=== PATIENT | male | born 1965 | race Caucasian/White ===

== ENCOUNTER 2022-04-06 13:47 | Inpatient (IN) | payer MEDICAID, OTHER ==
[~2022-04-06] VITALS: Ht 170.2 cm; Wt 88.5 kg
[~2022-04-06 13:47] MED LIST: AMLO5TAB PO; LISI-487 PO; UNKNOWN BP MEDS
[2022-04-06 13:57] VITALS: BP 125/65
[2022-04-06 14:44] LABS: BASOPHILS # (AUTO) 0.1 K/uL (0.00-0.22); BASOPHILS % (AUTO) 0.7 % (0.0-2.0); EOSINOPHILS # (AUTO) 0.3 K/uL (0-0.4); EOSINOPHILS % (AUTO) 3.5 % (0.0-4.0); HEMATOCRIT 42.6 % (36-52); HEMOGLOBIN 14.6 g/dL (12.0-18.0); LYMPHOCYTES # (AUTO) 1.9 K/uL (2.0-11.5); LYMPHOCYTES % (AUTO) 22.2 % (20.5-51.1); MEAN CORPUSCULAR HEMOGLOBIN 32 pg (27-31); MEAN CORPUSCULAR HGB CONC 34 g/dL (33-37); MEAN CORPUSCULAR VOLUME 92.6 fL (80-94); MONOCYTES # (AUTO) 0.9 K/uL (0.8-1.0); NEUTROPHILS # (AUTO) 5.5 K/uL (1.8-7.7); NEUTROPHILS % (AUTO) 63.6 % (42.2-75.2); PLATELET COUNT (AUTO) 188 K/uL (140-450); RED BLOOD CELL COUNT(AUTO) 4.59 MIL/uL (4.20-6.10); RED CELL DISTRIBUTION WIDTH 13.2 % (11.6-13.7); WHITE BLOOD COUNT (AUTO) 8.6 K/uL (4.8-10.8)
[2022-04-06 15:08] LABS: PROTHROMBIN TIME 10.2 secs (10.8-13.4)
[2022-04-06 15:13] LABS: ALBUMIN 3.8 g/dL (3.4-5.0); ANION GAP 11.7 (8-16); ASPARTATE AMINOTRANSFERASE 18 U/L (15-37); CHLORIDE 105 mmol/L (98-107); CREATININE 1.1 mg/dL (0.6-1.3); GFR ARICAN-AMERICAN 89 mL/min (>90); GLUCOSE 127 mg/dL (74-106); SODIUM SERUM 144 mmol/L (136-145); TOTAL BILIRUBIN 0.6 mg/dL (0.0-1.0); UREA NITROGEN, BLOOD 22 mg/dL (7-18)
[2022-04-06 15:40] LABS: POTASSIUM 2.7 mmol/L (3.5-5.1)
[2022-04-06] MEDS ORDERED: POTASSIUM CHLORIDE 10 MEQ TABER PO ONE ×2 (15:45→16:56)
[2022-04-06] MEDS ORDERED: KCL 20 MEQ/WATER INJ PREMIX 100 ML IV ONE (15:45)
[2022-04-06] MEDS ORDERED: ASPIRIN 325 MG TABEC PO STA (18:42)
[2022-04-06] MEDS ORDERED: HYDROcodone/APAP 5/325 MG 1 TAB TAB PO PRN (19:05)
[2022-04-06] MEDS ORDERED: ACETAMINOPHEN 325 MG TAB PO PRN (19:05)
[2022-04-06] MEDS ORDERED: MORPHINE SULFATE 4 MG/ML SYR IVP PRN (19:05)
[2022-04-06] MEDS ORDERED: ONDANSETRON 4 MG/2 ML VIAL IVP PRN (19:05)
[2022-04-06 19:57] LABS: APPEARANCE,URINE CLEAR (CLEAR); BILIRUBIN,URINE NEGATIVE (NEGATIVE); BLOOD, URINE NEGATIVE (NEGATIVE); COLOR,URINE YELLOW (YELLOW); LEUKOCYTE ESTERASE ,URINE NEGATIVE (NEGATIVE); NITRITE, URINE NEGATIVE (NEGATIVE); PH,URINE 5.5 (5.0-9.0); UGLUCOSE NEGATIVE (NEGATIVE)
[2022-04-06] MEDS ORDERED: CHLO25TA33 PO (20:17)
[2022-04-06 20:47] VITALS: BP 129/69
[2022-04-07] MEDS ORDERED: ATEN25TA2 PO (00:54)
[2022-04-07] MEDS ORDERED: ASPI-1206 PO (00:54)
[2022-04-07] MEDS ORDERED: ATOR10TA51 PO (00:54)
[2022-04-07] MEDS: SIMVASTATIN 40 MG TAB PO SCH ×2 (01:51→20:34)
[2022-04-07] MEDS: NACL 0.9% 1,000 ML IV SCH ×3 (01:54→21:56)
[2022-04-07 02:07] VITALS: BP 115/66
[2022-04-07 06:36] LABS: ANION GAP 11.3 (8-16); CARBON DIOXIDE 30.4 mmol/L (21-32); CREATININE 0.9 mg/dL (0.6-1.3)
[2022-04-07 06:49] LABS: POTASSIUM 2.7 mmol/L (3.5-5.1)
[2022-04-07 07:38] LABS: BASOPHILS # (AUTO) 0.1 K/uL (0.00-0.22); BASOPHILS % (AUTO) 0.6 % (0.0-2.0); EOSINOPHILS # (AUTO) 0.4 K/uL (0-0.4); EOSINOPHILS % (AUTO) 3.8 % (0.0-4.0); HEMATOCRIT 41.4 % (36-52); HEMOGLOBIN 14.5 g/dL (12.0-18.0); LYMPHOCYTES # (AUTO) 2.2 K/uL (2.0-11.5); LYMPHOCYTES % (AUTO) 23.1 % (20.5-51.1); MEAN CORPUSCULAR HEMOGLOBIN 32 pg (27-31); MEAN CORPUSCULAR HGB CONC 35 g/dL (33-37); MONOCYTES # (AUTO) 0.6 K/uL (0.8-1.0); MONOCYTES % (AUTO) 6.7 % (1.7-9.3); NEUTROPHILS # (AUTO) 6.3 K/uL (1.8-7.7); NEUTROPHILS % (AUTO) 65.8 % (42.2-75.2); PLATELET COUNT (AUTO) 269 K/uL (140-450); RED CELL DISTRIBUTION WIDTH 13.2 % (11.6-13.7); WHITE BLOOD COUNT (AUTO) 9.7 K/uL (4.8-10.8)
[2022-04-07 08:00] VITALS: BP 123/71
[2022-04-07 12:00] VITALS: BP 130/76
[2022-04-07 20:00] VITALS: BP 140/80
[2022-04-07] MEDS: KCL 20 MEQ/WATER INJ PREMIX 200 ML IV PRN (21:32)
[2022-04-08] VITALS: BP 124/75
[2022-04-08] MEDS: KCL 20 MEQ/WATER INJ PREMIX 200 ML IV PRN (01:52)
[2022-04-08 05:32] VITALS: BP 119/80
[2022-04-08 06:54] LABS: HEMATOCRIT 40.8 % (36-52); MEAN CORPUSCULAR HEMOGLOBIN 32 pg (27-31); MEAN CORPUSCULAR HGB CONC 34 g/dL (33-37); MEAN CORPUSCULAR VOLUME 92.4 fL (80-94); RED BLOOD CELL COUNT(AUTO) 4.42 MIL/uL (4.20-6.10); RED CELL DISTRIBUTION WIDTH 13.2 % (11.6-13.7); WHITE BLOOD COUNT (AUTO) 10.9 K/uL (4.8-10.8)
[2022-04-08 07:07] LABS: ANION GAP 10.7 (8-16); CARBON DIOXIDE 29.5 mmol/L (21-32); CREATININE 0.9 mg/dL (0.6-1.3); POTASSIUM 3.2 mmol/L (3.5-5.1)
[2022-04-08] MEDS ORDERED: ASPI-1822 PO (07:54)
[2022-04-08] MEDS ORDERED: CLOP75TA26 PO (07:55)
[2022-04-08 08:00] VITALS: BP 132/82
[2022-04-08] MEDS: NACL 0.9% 1,000 ML IV SCH (08:35)
[2022-04-08] MEDS ORDERED: ATOR40TA40 PO (08:51)
[2022-04-08] MEDS ORDERED: POTASSIUM CHLORIDE 10 MEQ TABER PO SCH (09:00)
[2022-04-08 10:06] LABS: LYMPHOCYTES % (MANUAL) 22 % (20-46)
[2022-04-08 10:07] LABS: EOSINOPHILS % (MANUAL) 4 % (0-4); MONOCYTES % (MANUAL) 10 % (5-12)
[2022-04-08 10:08] LABS: PLATELET COUNT (AUTO) 221 K/uL (140-450)
== END 2022-04-08 10:22 | disposition home or self-care (01) | DRG 45 ==
LOC: MED 13:47 → MTU 19:05
PROVIDERS: ADMIT Student in an Organized Health Care Education/Training Program; ATTEND Student in an Organized Health Care Education/Training Program
DX: I63.89 Other cerebral infarction (principal); G81.94 Hemiplegia, unspecified affecting left nondominant side; E66.9 Obesity, unspecified; F17.200 Nicotine dependence, unspecified, uncomplicated; R29.810 Facial weakness; R47.1 Dysarthria and anarthria; R29.702 NIHSS score 2; I10 Essential (primary) hypertension; R47.81 Slurred speech; Z20.822 Contact with and (suspected) exposure to COVID-19; Z68.30 Body mass index [BMI] 30.0-30.9, adult
CPT/HCPCS: 36415; 70450; 71045; 80048; 80053; 81003; 83690; 83735; 84484; 85025; 85610; 85730; 86886; 86900; 86901; 87081; 93005; 96365; 99291; J1644; J3480; Q0092; Q9967

== ENCOUNTER 2023-04-29 14:39 | Inpatient (IN) | payer OTHER ==
[~2023-04-29] VITALS: Ht 170.2 cm; Wt 84.0 kg
[~2023-04-29 14:39] MED LIST changes: +ASPI-1822 PO; +ATEN25TA2 PO; +ATOR40TA40 PO; +CHLO25TA33 PO; +CLOP-68 PO; -UNKNOWN BP MEDS
[2023-04-29 14:51] VITALS: BP 110/60; PULSE 106; RESP 38; TEMP 102.9; O2SAT 93
[2023-04-29] MEDS ORDERED: CEFEPIME 1,000 MG in DEXTROSE 5% 50 ML IV ONE (15:15)
[2023-04-29] MEDS ORDERED: NACL 0.9% 2,000 ML IV ONE (15:15)
[2023-04-29] MEDS ORDERED: CEFEPIME 1,000 MG VIAL ONE (15:28)
[2023-04-29] MEDS ORDERED: ACETAMINOPHEN 325 MG TAB PO ONE (15:35)
[2023-04-29 16:08] LABS: BASOPHILS # (AUTO) 0.1 K/uL (0.00-0.22); BASOPHILS % (AUTO) 0.6 % (0.0-2.0); HEMATOCRIT 40.1 % (36-52); HEMOGLOBIN 14.4 g/dL (12.0-18.0); LYMPHOCYTES # (AUTO) 0.9 K/uL (2.0-11.5); LYMPHOCYTES % (AUTO) 5.3 % (20.5-51.1); MEAN CORPUSCULAR HEMOGLOBIN 31 pg (27-31); MEAN CORPUSCULAR HGB CONC 36 g/dL (33-37); MEAN CORPUSCULAR VOLUME 87.4 fL (80-94); MONOCYTES # (AUTO) 0.7 K/uL (0.8-1.0); MONOCYTES % (AUTO) 4.1 % (1.7-9.3); PLATELET COUNT (AUTO) 40 K/uL (140-450); RED BLOOD CELL COUNT(AUTO) 4.58 MIL/uL (4.20-6.10); RED CELL DISTRIBUTION WIDTH 13.4 % (11.6-13.7); WHITE BLOOD COUNT (AUTO) 16.6 K/uL (4.8-10.8)
[2023-04-29 16:33] LABS: ALANINE AMINOTRANSFERASE 549 U/L (12-78); ALKALINE PHOSPHATASE 157 U/L (50-136); ANION GAP 11.3 (8-16); ASPARTATE AMINOTRANSFERASE 649 U/L (15-37); CALCIUM 8.4 mg/dL (8.5-10.1); CARBON DIOXIDE 26.6 mmol/L (21-32); CHLORIDE 86 mmol/L (98-107); CREATININE 1.9 mg/dL (0.6-1.3); GFR ARICAN-AMERICAN 47 mL/min (>90); GFR NON ARICAN-AMERICAN 39 mL/min (>90); GLUCOSE 144 mg/dL (74-106); LIPASE 488 U/L (73-393); SODIUM SERUM 122 mmol/L (136-145); TOTAL BILIRUBIN 1.5 mg/dL (0.0-1.0); TOTAL PROTEIN, SERUM 7.1 g/dL (6.4-8.2); UREA NITROGEN, BLOOD 25 mg/dL (7-18)
[2023-04-29 16:45] LABS: POTASSIUM 1.9 mmol/L (3.5-5.1)
[2023-04-29 16:49] LABS: LACTIC ACID 2.2 mmol/L (0.4-2.0)
[2023-04-29] MEDS ORDERED: KCL 20 MEQ IN 100 mL PREMIX 200 ML IV ONE (16:50)
[2023-04-29] MEDS ORDERED: NACL 0.9% 1,000 ML IV ONE (16:50)
[2023-04-29] MEDS ORDERED: SODIUM PHOS / POTASSIUM PHOS 1 PKT PDR PO SCH (16:50)
[2023-04-29 19:29] VITALS: O2SAT 98
[2023-04-29 20:27] LABS: ALBUMIN 2.6 g/dL (3.4-5.0); CALCIUM 7.8 mg/dL (8.5-10.1); CARBON DIOXIDE 26.8 mmol/L (21-32); CREATININE 1.6 mg/dL (0.6-1.3); TOTAL BILIRUBIN 1.5 mg/dL (0.0-1.0); TOTAL PROTEIN, SERUM 6.2 g/dL (6.4-8.2)
[2023-04-29 20:34] LABS: POTASSIUM 1.8 mmol/L (3.5-5.1)
[2023-04-29] MEDS ORDERED: MORPHINE SULFATE 2 MG/ML SYR IVP PRN (21:15)
[2023-04-29] MEDS ORDERED: MAGNESIUM OXIDE 400 MG TAB PO PRN (21:15)
[2023-04-29] MEDS ORDERED: ONDANSETRON 4 MG/2 ML VIAL IVP PRN (21:15)
[2023-04-29] MEDS ORDERED: HYDROcodone/APAP 5/325 MG 1 TAB TAB PO PRN (21:15)
[2023-04-29] MEDS ORDERED: POTASSIUM CHLORIDE 10 MEQ TABER PO PRN (21:15)
[2023-04-29] MEDS ORDERED: MAG SULF 2000 MG/WATER PREMIX 50 ML IV PRN (21:15)
[2023-04-29 21:56] VITALS: BP 123/68; PULSE 86; RESP 20; TEMP 99.6; O2SAT 95
[2023-04-29 22:04] VITALS: PULSE 91
[2023-04-29] MEDS: NACL 0.9% 1,000 ML IV SCH (23:26)
[2023-04-29] MEDS ORDERED: AZITHROMYCIN 500 MG INJ VIAL IV ONE (23:30)
[2023-04-29] MEDS: AZITHROMYCIN 500 MG in DEXTROSE 5% 250 ML IV SCH (23:31)
[2023-04-29] MEDS: ACETAMINOPHEN 325 MG TAB PO PRN (23:53)
[2023-04-29 23:55] VITALS: PULSE 86
[2023-04-30] VITALS (9 sets, daily range): BP systolic 104–130; BP diastolic 62–88; PULSE 66–95; RESP 18–24; TEMP 97.9–101.3; O2SAT 92–98
[2023-04-30 03:08] LABS: APPEARANCE,URINE CLEAR (CLEAR); BILIRUBIN,URINE NEGATIVE (NEGATIVE); BLOOD, URINE 2+ (NEGATIVE); COLOR,URINE YELLOW (YELLOW); LEUKOCYTE ESTERASE ,URINE NEGATIVE (NEGATIVE); NITRITE, URINE NEGATIVE (NEGATIVE); PROTEIN,URINE TRACE (NEGATIVE); UGLUCOSE NEGATIVE (NEGATIVE); UROBILINOGEN,URINE 0.2 EU/dL (0.2 - 1)
[2023-04-30 03:35] LABS: BACTERIA,URINE 10-30 (MOD) /HPF (None Seen); MUCUS,URINE 1+ /LPF (None Seen); SQUAMOUS EPITHELIAL CELL,UR 0-3 (FEW) /LPF (0-3 (FEW)); WBC,URINE 0-5 /HPF (0-5)
[2023-04-30 06:01] LABS: BASOPHILS # (AUTO) 0.1 K/uL (0.00-0.22); BASOPHILS % (AUTO) 0.4 % (0.0-2.0); EOSINOPHILS % (AUTO) 0.1 % (0.0-4.0); HEMATOCRIT 38.3 % (36-52); HEMOGLOBIN 13.6 g/dL (12.0-18.0); LYMPHOCYTES # (AUTO) 0.8 K/uL (2.0-11.5); LYMPHOCYTES % (AUTO) 5.1 % (20.5-51.1); MEAN CORPUSCULAR HEMOGLOBIN 31 pg (27-31); MEAN CORPUSCULAR HGB CONC 36 g/dL (33-37); MEAN CORPUSCULAR VOLUME 87.8 fL (80-94); MONOCYTES # (AUTO) 0.6 K/uL (0.8-1.0); MONOCYTES % (AUTO) 3.8 % (1.7-9.3); NEUTROPHILS % (AUTO) 90.6 % (42.2-75.2); PLATELET COUNT (AUTO) 49 K/uL (140-450); RED BLOOD CELL COUNT(AUTO) 4.36 MIL/uL (4.20-6.10); RED CELL DISTRIBUTION WIDTH 13.6 % (11.6-13.7); WHITE BLOOD COUNT (AUTO) 15.4 K/uL (4.8-10.8)
[2023-04-30 06:20] LABS: ALBUMIN 2.5 g/dL (3.4-5.0); ANION GAP 9.3 (8-16); CALCIUM 8.2 mg/dL (8.5-10.1); CARBON DIOXIDE 26.6 mmol/L (21-32); CREATININE 1.4 mg/dL (0.6-1.3); MAGNESIUM 2.3 mg/dL (1.8-2.4); TOTAL BILIRUBIN 1.6 mg/dL (0.0-1.0); TOTAL PROTEIN, SERUM 6.2 g/dL (6.4-8.2)
[2023-04-30 06:23] LABS: POTASSIUM 1.9 mmol/L (3.5-5.1)
[2023-04-30] MEDS: KCL 20 MEQ IN 100 mL PREMIX 200 ML IV PRN (06:32)
[2023-04-30] MEDS ORDERED: KCL 20 MEQ IN 100 mL PREMIX 200 ML IV ONE ×2 (09:00→13:00)
[2023-04-30] MEDS: NACL 0.9% 1,000 ML IV SCH ×2 (09:45→21:31)
[2023-04-30] MEDS: ACETAMINOPHEN 325 MG TAB PO PRN (11:37)
[2023-04-30] MEDS: CEFEPIME 1,000 MG in DEXTROSE 5% 50 ML IV SCH ×2 (12:07→20:17)
[2023-04-30 16:36] LABS: ANION GAP 9.5 (8-16); CALCIUM 8.7 mg/dL (8.5-10.1); CARBON DIOXIDE 27.9 mmol/L (21-32); CREATININE 1.3 mg/dL (0.6-1.3)
[2023-04-30 16:50] LABS: CREATINE KINASE, TOTAL 1483 U/L (39-308)
[2023-04-30 16:52] LABS: POTASSIUM 2.4 mmol/L (3.5-5.1)
[2023-04-30] MEDS ORDERED: KCL 20 MEQ IN 100 mL PREMIX 200 ML IV SCH (17:15)
[2023-04-30] MEDS ORDERED: POTASSIUM CHLORIDE 10 MEQ TABER PO SCH (17:15)
[2023-04-30] MEDS: AZITHROMYCIN 500 MG in DEXTROSE 5% 250 ML IV SCH (21:18)
[2023-04-30 23:10] LABS: URINE TOTAL PROTEIN 61.7 mg/dL (0-12)
[2023-05-01] VITALS (9 sets, daily range): BP systolic 102–119; BP diastolic 64–73; PULSE 73–96; RESP 16–20; TEMP 97.3–99.3; O2SAT 92–100
[2023-05-01 05:36] LABS: BASOPHILS % (AUTO) 0.3 % (0.0-2.0); EOSINOPHILS # (AUTO) 0.1 K/uL (0-0.4); EOSINOPHILS % (AUTO) 0.6 % (0.0-4.0); HEMATOCRIT 37.4 % (36-52); HEMOGLOBIN 13.1 g/dL (12.0-18.0); LYMPHOCYTES % (AUTO) 7.9 % (20.5-51.1); MEAN CORPUSCULAR HEMOGLOBIN 31 pg (27-31); MEAN CORPUSCULAR HGB CONC 35 g/dL (33-37); MEAN CORPUSCULAR VOLUME 89.2 fL (80-94); MONOCYTES # (AUTO) 0.9 K/uL (0.8-1.0); MONOCYTES % (AUTO) 6.6 % (1.7-9.3); NEUTROPHILS # (AUTO) 11.2 K/uL (1.8-7.7); NEUTROPHILS % (AUTO) 84.6 % (42.2-75.2); PLATELET COUNT (AUTO) 54 K/uL (140-450); RED BLOOD CELL COUNT(AUTO) 4.19 MIL/uL (4.20-6.10); RED CELL DISTRIBUTION WIDTH 13.6 % (11.6-13.7); WHITE BLOOD COUNT (AUTO) 13.2 K/uL (4.8-10.8)
[2023-05-01 05:47] LABS: ALBUMIN 2.4 g/dL (3.4-5.0); ANION GAP 10.3 (8-16); CALCIUM 8.1 mg/dL (8.5-10.1); MAGNESIUM 1.8 mg/dL (1.8-2.4); TOTAL BILIRUBIN 1.1 mg/dL (0.0-1.0); TOTAL PROTEIN, SERUM 5.9 g/dL (6.4-8.2)
[2023-05-01 05:50] LABS: POTASSIUM 2.3 mmol/L (3.5-5.1)
[2023-05-01] MEDS: KCL 20 MEQ IN 100 mL PREMIX 200 ML IV PRN (06:02)
[2023-05-01] MEDS: CEFEPIME 1,000 MG in DEXTROSE 5% 50 ML IV SCH ×2 (10:23→20:32)
[2023-05-01] MEDS ORDERED: POTASSIUM CHLORIDE 10 MEQ TABER PO SCH ×3 (14:00→18:00)
[2023-05-01] MEDS: AZITHROMYCIN 500 MG in DEXTROSE 5% 250 ML IV SCH (22:08)
[2023-05-02] VITALS: BP 116/70; PULSE 70; PULSE 79; RESP 20; TEMP 97.2; O2SAT 99
[2023-05-02 04:00] VITALS: BP 113/70; PULSE 72; PULSE 80; RESP 20; TEMP 96.7; O2SAT 100
[2023-05-02 05:34] LABS: BASOPHILS % (AUTO) 0.2 % (0.0-2.0); EOSINOPHILS # (AUTO) 0.2 K/uL (0-0.4); EOSINOPHILS % (AUTO) 1.9 % (0.0-4.0); HEMATOCRIT 38.5 % (36-52); HEMOGLOBIN 13.4 g/dL (12.0-18.0); LYMPHOCYTES # (AUTO) 1.3 K/uL (2.0-11.5); LYMPHOCYTES % (AUTO) 10.3 % (20.5-51.1); MEAN CORPUSCULAR HEMOGLOBIN 31 pg (27-31); MEAN CORPUSCULAR HGB CONC 35 g/dL (33-37); MEAN CORPUSCULAR VOLUME 89.4 fL (80-94); MONOCYTES # (AUTO) 1.2 K/uL (0.8-1.0); MONOCYTES % (AUTO) 8.8 % (1.7-9.3); NEUTROPHILS # (AUTO) 10.3 K/uL (1.8-7.7); NEUTROPHILS % (AUTO) 78.8 % (42.2-75.2); PLATELET COUNT (AUTO) 72 K/uL (140-450); RED CELL DISTRIBUTION WIDTH 14.2 % (11.6-13.7); WHITE BLOOD COUNT (AUTO) 13.1 K/uL (4.8-10.8)
[2023-05-02 06:23] LABS: ALBUMIN 2.6 g/dL (3.4-5.0); ANION GAP 10.5 (8-16); CALCIUM 8.9 mg/dL (8.5-10.1); CARBON DIOXIDE 27.4 mmol/L (21-32); CREATININE 0.9 mg/dL (0.6-1.3); MAGNESIUM 1.6 mg/dL (1.8-2.4); TOTAL BILIRUBIN 1.3 mg/dL (0.0-1.0); TOTAL PROTEIN, SERUM 6.5 g/dL (6.4-8.2)
[2023-05-02 06:34] LABS: POTASSIUM 2.9 mmol/L (3.5-5.1)
[2023-05-02 08:00] VITALS: BP 120/70; PULSE 74; PULSE 93; RESP 17; TEMP 97.1; O2SAT 96
[2023-05-02] MEDS: CEFEPIME 1,000 MG in DEXTROSE 5% 50 ML IV SCH (09:16)
[2023-05-02] MEDS ORDERED: POTASSIUM CHLORIDE 40 MEQ, LIDOCAINE 1% 25 MG in NACL 0.9% 250 ML IV ONE (09:30)
[2023-05-02] MEDS ORDERED: POTASSIUM CHLORIDE 10 MEQ TABER PO SCH ×2 (11:00→14:00)
[2023-05-02] MEDS ORDERED: MAG SULF 2000 MG/WATER PREMIX 50 ML IV SCH (11:00)
[2023-05-02 12:00] VITALS: BP 106/64; PULSE 72; PULSE 77; RESP 18; TEMP 97.9; O2SAT 96
[2023-05-02 14:49] LABS: ANION GAP 8.9 (8-16); CALCIUM 8.8 mg/dL (8.5-10.1); CARBON DIOXIDE 29.7 mmol/L (21-32); POTASSIUM 3.6 mmol/L (3.5-5.1)
[2023-05-02 16:00] VITALS: BP 137/76; PULSE 74; PULSE 76; RESP 18; TEMP 97.1; O2SAT 96
[2023-05-02] MEDS ORDERED: LEVO750T75 PO (16:14)
[2023-05-02 16:58] VITALS: BP 137/76; PULSE 76; RESP 18; TEMP 97.1
== END 2023-05-02 17:30 | disposition home or self-care (01) | DRG 720 ==
LOC: MED 14:39 → MTU 21:15
PROVIDERS: ADMIT Internal Medicine; ATTEND Internal Medicine
DX: A41.9 Sepsis, unspecified organism (principal); J96.01 Acute respiratory failure with hypoxia; G93.41 Metabolic encephalopathy; N17.9 Acute kidney failure, unspecified; E44.0 Moderate protein-calorie malnutrition; J18.9 Pneumonia, unspecified organism; E87.1 Hypo-osmolality and hyponatremia; R65.20 Severe sepsis without septic shock; E87.6 Hypokalemia; R74.01 Elevation of levels of liver transaminase levels; D72.829 Elevated white blood cell count, unspecified; Z68.29 Body mass index [BMI] 29.0-29.9, adult; Z79.82 Long term (current) use of aspirin; Z79.899 Other long term (current) drug therapy
CPT/HCPCS: 36415; 70450; 71045; 76705; 80048; 80053; 81001; 82550; 82553; 82570; 83605; 83690; 83735; 84484; 85025; 87081; 87086; 93005; 96361; 96365; 99291; 99292; J0456; J0692; J2001; J3475; J3480; J7030; J7060; Q0092